=== PATIENT | female | born 1940 | race Caucasian/White ===

== ENCOUNTER 2020-06-11 07:17 | Day surgery (SDC) | payer OTHER ==
[2020-06-01 09:58] VITALS: BMI 31.9
[~2020-06-11 07:17] MED LIST: BUPIVACAINE HCL/PF 0.25% (2.5MG/ML) 10 ML VIAL IJ ONE; TRIAMCINOLONE ACET 40MG/1ML VIAL IM ONE
[2020-06-11] MEDS ORDERED: TRIAMCINOLONE ACET 40MG/1ML VIAL ONE (07:46)
[2020-06-11] MEDS ORDERED: BUPIVACAINE HCL/PF 0.25% (2.5MG/ML) 10 ML VIAL ONE (07:46)
[2020-06-11 08:14] LABS: ACTIVATED PTT 42.3 SECONDS (25.2-36.5)
[2020-06-11 08:18] LABS: INR 1.23 (0.82-1.09); PROTHROMBIN TIME (PATIENT) 13.6 SEC (10.2-13.0)
[2020-06-11] MEDS ORDERED: MIDAZOLAM HCL 2 MG/2 ML SINGLE DOSE VIAL ONE (08:39)
[2020-06-11] MEDS ORDERED: PROPOFOL 20 ML ONE (08:39)
[2020-06-11] MEDS ORDERED: DEXAMETHASONE SOD PHOSPHATE 4 MG/1 ML VIAL ONE (09:09)
[2020-06-11] MEDS ORDERED: ONDANSETRON 4 MG/2 ML VIAL ONE (09:09)
[2020-06-11] MEDS ORDERED: ceFAZolin SODIUM 1 GM VIAL ONE (09:09)
[2020-06-11] MEDS ORDERED: KETOROLAC TROMETHAMINE 30 MG/1 ML VIAL ONE (09:09)
[2020-06-11] MEDS ORDERED: METOPROLOL TARTRATE 5 MG/5 ML VIAL ONE (09:09)
[2020-06-11 11:00] VITALS: PULSE 84; TEMP 97.9
[2020-06-11 11:42] VITALS: BP 138/65
[2020-06-11] MEDS ORDERED: oxyCODONE HCL 5 MG TABLET PO PRN (11:50)
[2020-06-11] MEDS ORDERED: ONDANSETRON 4 MG/2 ML VIAL IVPUSH PRN (11:50)
[2020-06-11] MEDS ORDERED: LACTATED RINGERS SOLUTION 1,000 ML IV SCH (12:00)
== END 2020-06-11 11:45 | disposition home or self-care (01) ==
LOC: FASU 07:17
PROVIDERS: ATTEND Orthopaedic Surgery Adult Reconstructive Orthopaedic Surgery
PROC: 3E0U3BZ Introduction of Anesthetic Agent into Joints, Percutaneous Approach (ICD-10-PCS; 2020-06-11)
PROC: 3E0U3GC Introduction of Other Therapeutic Substance into Joints, Percutaneous Approach (ICD-10-PCS; 2020-06-11)
PROC: 0SCC4ZZ Extirpation of Matter from Right Knee Joint, Percutaneous Endoscopic Approach (ICD-10-PCS; principal; 2020-06-11 09:00)
DX: M17.11 Unilateral primary osteoarthritis, right knee (principal); M65.9 Synovitis and tenosynovitis, unspecified; M23.41 Loose body in knee, right knee
CPT/HCPCS: 36415; 85610; 85730; 94760

== ENCOUNTER 2021-01-26 05:48 | Inpatient (IN) | payer BC ==
[2021-01-20 12:10] VITALS: BMI 32.4
[2021-01-26] MEDS ORDERED: LOCK ITEM NR ONE ×2 (06:30→22:07)
[2021-01-26] MEDS ORDERED: MIDAZOLAM HCL 2 MG/2 ML SINGLE DOSE VIAL ONE (06:51)
[2021-01-26] MEDS ORDERED: BUPIVACAINE HCL/PF 0.5% (5MG/ML) 10 ML VIAL ONE ×2 (06:52→07:49)
[2021-01-26] MEDS ORDERED: BUPIVACAINE LIPOSOME/PF (EXPAREL) 266 MG/20 ML VIAL ONE (06:52)
[2021-01-26] MEDS ORDERED: SODIUM CHLORIDE 0.9% P/F 10 ML VIAL IJ ONE (06:52)
[2021-01-26] MEDS ORDERED: BENZOIN 118 ML SPRAY.PUMP TP ONE (07:14)
[2021-01-26] MEDS ORDERED: VANCOMYCIN 1,000 MG VIAL (RESTRICTED TO ID ONLY) IVPB ONE (08:25)
[2021-01-26] MEDS ORDERED: DEXAMETHASONE SOD PHOSPHATE 4 MG/1 ML VIAL ONE (08:27)
[2021-01-26] MEDS ORDERED: LIDOCAINE HCL/PF 2% SDV 5ML VIAL ONE (08:27)
[2021-01-26] MEDS ORDERED: PROPOFOL 20 ML ONE ×3 (08:27)
[2021-01-26] MEDS ORDERED: ceFAZolin SODIUM 1 GM VIAL ONE ×4 (08:27→21:34)
[2021-01-26] MEDS ORDERED: ONDANSETRON 4 MG/2 ML VIAL ONE (08:27)
[2021-01-26] MEDS ORDERED: ceFAZolin SODIUM 1 GM VIAL IVPB ONE (08:48)
[2021-01-26] MEDS ORDERED: TRANEXAMIC ACID 1000 MG/10 ML VIAL ONE ×2 (08:51→10:48)
[2021-01-26] MEDS ORDERED: VANCOMYCIN 1,000 MG VIAL (RESTRICTED TO ID ONLY) ONE (08:51)
[2021-01-26] MEDS ORDERED: ONDANSETRON 4 MG/2 ML VIAL IVPUSH PRN (11:50)
[2021-01-26] MEDS ORDERED: MAG HYDROX/AL HYDROX/SIMETH 30 ML UNIT-DOSE CUP PO PRN (11:50)
[2021-01-26] MEDS ORDERED: MAGNESIUM HYDROX 2400MG/30ML ORAL SUSPENSION 30 ML CUP PO PRN (11:50)
[2021-01-26] MEDS ORDERED: PROMETHAZINE HCL 25 MG/1 ML VIAL IVPUSH PRN (11:57)
[2021-01-26] MEDS ORDERED: oxyCODONE HCL 5 MG TABLET PO PRN (11:57)
[2021-01-26] MEDS ORDERED: LACTATED RINGERS SOLUTION 1,000 ML IV SCH (12:00)
[2021-01-26] MEDS ORDERED: ACETAMINOPHEN 1000 MG/100 ML VIAL IVPB ONE (12:02)
[2021-01-26] MEDS ORDERED: DEXTROSE 5%-WATER - 50 ML IVPB ONE ×2 (16:29→21:34)
[2021-01-26] MEDS: ACETAMINOPHEN 500 MG TABLET (FP) PO SCH ×2 (17:33→23:08)
[2021-01-26] MEDS: CEFAZOLIN 2 GM in DEXTROSE 5%-WATER - 50 ML IVPB SCH ×2 (17:46→22:15)
[2021-01-26 18:52] LABS: INR 1.14 (0.82-1.09); PROTHROMBIN TIME (PATIENT) 12.6 SEC (10.2-13.0)
[2021-01-26] MEDS: WARFARIN NA 5 MG TABLET PO SCH (19:28)
[2021-01-26] MEDS: SENNOSIDES/DOCUSATE COMBO (SENNA PLUS) TABLET (UD) PO SCH (21:38)
[2021-01-26] MEDS: ENOXAPARIN NA (PORCINE) 100 MG/1 ML DISP.SYRIN SQ SCH (21:38)
[2021-01-26] MEDS ORDERED: ENOXAPARIN NA (PORCINE) 30 MG/0.3 ML DISP.SYRIN SQ SCH (22:00)
[2021-01-26] MEDS: oxyCODONE HCL 5 MG TABLET PO PRN (22:51)
[2021-01-27] MEDS ORDERED: ceFAZolin SODIUM 1 GM VIAL ONE (05:45)
[2021-01-27] MEDS ORDERED: DEXTROSE 5%-WATER - 50 ML IVPB ONE (05:45)
[2021-01-27] MEDS: ACETAMINOPHEN 500 MG TABLET (FP) PO SCH ×3 (06:05→17:53)
[2021-01-27] MEDS: CEFAZOLIN 2 GM in DEXTROSE 5%-WATER - 50 ML IVPB SCH (06:05)
[2021-01-27] MEDS: oxyCODONE HCL 5 MG TABLET PO PRN ×3 (06:06→17:54)
[2021-01-27 08:02] LABS: HEMATOCRIT 37.1 % (32.4-45.2); HEMOGLOBIN 12.4 GM/dl (10.7-15.3); MCH 28.9 pg (25.7-33.7); MCHC 33.3 g/dl (32.0-36.0); MEAN CELL VOLUME 86.8 fl (80-96); MEAN PLT VOLUME 8.5 fl (7.5-11.1); PLATELET COUNT 309 10^3/uL (134-434); RBC 4.27 M/mm3 (3.60-5.2); RDW 12.8 % (11.6-15.6)
[2021-01-27 08:09] LABS: CALCIUM 8.9 mg/dl (8.5-10); CREATININE 1.2 mg/dl (0.55-1.3)
[2021-01-27 08:11] LABS: INR 1.22 (0.82-1.09); PROTHROMBIN TIME (PATIENT) 13.5 SEC (10.2-13.0)
[2021-01-27] MEDS ORDERED: PATIENT'S OWN MEDICATION (NON-FORMULARY) (Pravastatin Sodium [Pravachol] 40 MG Tablet) PO SCH (10:00)
[2021-01-27] MEDS ORDERED: PATIENT'S OWN MEDICATION (NON-FORMULARY) (Cetirizine Hcl [Zyrtec] 10 MG Tablet) PO SCH (10:00)
[2021-01-27] MEDS ORDERED: WARFARIN NA 5 MG TABLET PO SCH (10:00)
[2021-01-27] MEDS ORDERED: PATIENT'S OWN MEDICATION (NON-FORMULARY) (Amlodipine Besylate/Benazepril [Amlodipine-Benaz PO SCH (10:00)
[2021-01-27] MEDS: ENOXAPARIN NA (PORCINE) 100 MG/1 ML DISP.SYRIN SQ SCH ×2 (10:34→22:08)
[2021-01-27] MEDS: metoPROLOL SUCCINATE 25 MG TAB.SR.24H (FP) PO SCH (10:34)
[2021-01-27] MEDS: LISINOPRIL 20 MG TABLET PO SCH (10:34)
[2021-01-27] MEDS: PANTOPRAZOLE 40 MG TABLET PO SCH (10:34)
[2021-01-27] MEDS: SENNOSIDES/DOCUSATE COMBO (SENNA PLUS) TABLET (UD) PO SCH ×2 (10:34→22:08)
[2021-01-27] MEDS: amLODIPine BESYLATE 5 MG TABLET (FP) PO SCH (10:34)
[2021-01-27] MEDS: LORATADINE 10 MG TABLET PO SCH (10:34)
[2021-01-27] MEDS: WARFARIN NA 5 MG TABLET PO SCH (17:53)
[2021-01-27] MEDS: ATORVASTATIN CA 10 MG TABLET (FP) PO SCH (22:08)
[2021-01-28] MEDS: ACETAMINOPHEN 500 MG TABLET (FP) PO SCH ×4 (00:59→20:30)
[2021-01-28] MEDS: oxyCODONE HCL 5 MG TABLET PO PRN ×3 (01:00→20:29)
[2021-01-28 07:43] LABS: HEMATOCRIT 34.1 % (32.4-45.2); HEMOGLOBIN 11.2 GM/dl (10.7-15.3); MCH 28.5 pg (25.7-33.7); MCHC 32.7 g/dl (32.0-36.0); MEAN PLT VOLUME 8.6 fl (7.5-11.1); PLATELET COUNT 261 10^3/uL (134-434); RBC 3.92 M/mm3 (3.60-5.2); RDW 13.3 % (11.6-15.6); WHITE BLOOD COUNT 10.8 K/mm3 (4.0-10.8)
[2021-01-28 07:49] LABS: INR 1.59 (0.82-1.09); PROTHROMBIN TIME (PATIENT) 17.6 SEC (10.2-13.0)
[2021-01-28] MEDS: amLODIPine BESYLATE 5 MG TABLET (FP) PO SCH (11:13)
[2021-01-28] MEDS: ENOXAPARIN NA (PORCINE) 100 MG/1 ML DISP.SYRIN SQ SCH ×2 (11:13→21:46)
[2021-01-28] MEDS: LORATADINE 10 MG TABLET PO SCH (11:13)
[2021-01-28] MEDS: metoPROLOL SUCCINATE 25 MG TAB.SR.24H (FP) PO SCH (11:13)
[2021-01-28] MEDS: PANTOPRAZOLE 40 MG TABLET PO SCH (11:14)
[2021-01-28] MEDS: LISINOPRIL 20 MG TABLET PO SCH (11:14)
[2021-01-28] MEDS: SENNOSIDES/DOCUSATE COMBO (SENNA PLUS) TABLET (UD) PO SCH ×2 (11:14→21:45)
[2021-01-28] MEDS ORDERED: KETOROLAC TROMETHAMINE 15 MG/ML VIAL IVPUSH ONE ×2 (13:34→18:05)
[2021-01-28] MEDS: WARFARIN NA 5 MG TABLET PO SCH (17:09)
[2021-01-28 19:22] LABS: HEMATOCRIT 31.2 % (32.4-45.2); HEMOGLOBIN 10.5 GM/dl (10.7-15.3); MCH 29.3 pg (25.7-33.7); MCHC 33.8 g/dl (32.0-36.0); MEAN CELL VOLUME 86.6 fl (80-96); MEAN PLT VOLUME 9.1 fl (7.5-11.1); PLATELET COUNT 226 10^3/uL (134-434); RDW 13.5 % (11.6-15.6); WHITE BLOOD COUNT 10.5 K/mm3 (4.0-10.8)
[2021-01-28] MEDS: ATORVASTATIN CA 10 MG TABLET (FP) PO SCH (21:45)
[2021-01-29] MEDS: oxyCODONE HCL 5 MG TABLET PO PRN ×2 (00:30→06:44)
[2021-01-29] MEDS: ACETAMINOPHEN 500 MG TABLET (FP) PO SCH ×3 (06:00→18:29)
[2021-01-29] MEDS ORDERED: ONDANSETRON 4 MG/2 ML VIAL IVPUSH PRN ×3 (08:15→16:39)
[2021-01-29] MEDS ORDERED: oxyCODONE HCL 5 MG TABLET PO PRN ×6 (08:15→16:39)
[2021-01-29 08:18] LABS: BASO % 0.8 % (0-2.0); EOS % 3.4 % (0-4.5); HEMATOCRIT 29.2 % (32.4-45.2); HEMOGLOBIN 9.8 GM/dl (10.7-15.3); LYMPH % 12.1 % (8-40); MCH 29.3 pg (25.7-33.7); MCHC 33.3 g/dl (32.0-36.0); MEAN PLT VOLUME 9.1 fl (7.5-11.1); MONO % 9.6 % (3.8-10.2); NEUT % 74.1 % (42.8-82.8); PLATELET COUNT 225 10^3/uL (134-434); RBC 3.32 M/mm3 (3.60-5.2); RDW 13.1 % (11.6-15.6); WHITE BLOOD COUNT 8.5 K/mm3 (4.0-10.8)
[2021-01-29 08:24] LABS: INR 1.41 (0.82-1.09); PROTHROMBIN TIME (PATIENT) 15.7 SEC (10.2-13.0)
[2021-01-29 08:27] LABS: ALBUMIN 2.9 g/dl (3.4-5.0); BILIRUBIN,TOTAL 1.3 mg/dl (0.2-1); CALCIUM 8.9 mg/dl (8.5-10); CREATININE 1.2 mg/dl (0.55-1.3); TOT PROT 5.4 g/dl (6.4-8.2)
[2021-01-29] MEDS ORDERED: LISINOPRIL 20 MG TABLET PO SCH (10:00)
[2021-01-29] MEDS ORDERED: PANTOPRAZOLE 40 MG TABLET PO SCH (10:00)
[2021-01-29] MEDS ORDERED: SENNOSIDES/DOCUSATE COMBO (SENNA PLUS) TABLET (UD) PO SCH ×2 (10:00→22:00)
[2021-01-29] MEDS ORDERED: LORATADINE 10 MG TABLET PO SCH (10:00)
[2021-01-29] MEDS ORDERED: metoPROLOL SUCCINATE 25 MG TAB.SR.24H (FP) PO SCH (10:00)
[2021-01-29] MEDS ORDERED: amLODIPine BESYLATE 5 MG TABLET (FP) PO SCH (10:00)
[2021-01-29] MEDS ORDERED: ONDANSETRON 4 MG/2 ML VIAL ONE (11:41)
[2021-01-29] MEDS ORDERED: DEXAMETHASONE SOD PHOSPHATE 4 MG/1 ML VIAL ONE (11:41)
[2021-01-29] MEDS ORDERED: LIDOCAINE HCL/PF 2% SDV 5ML VIAL ONE (11:41)
[2021-01-29] MEDS ORDERED: fentaNYL CITRATE 250 MCG/5 ML VIAL ONE (11:42)
[2021-01-29] MEDS ORDERED: PROPOFOL 20 ML ONE ×2 (11:43)
[2021-01-29] MEDS ORDERED: TRANEXAMIC ACID 1000 MG/10 ML VIAL ONE (11:46)
[2021-01-29] MEDS ORDERED: ceFAZolin SODIUM 1 GM VIAL ONE (11:46)
[2021-01-29] MEDS ORDERED: METOPROLOL TARTRATE 5 MG/5 ML VIAL ONE (11:48)
[2021-01-29] MEDS ORDERED: MIDAZOLAM HCL 2 MG/2 ML SINGLE DOSE VIAL ONE (11:49)
[2021-01-29] MEDS ORDERED: ACETAMINOPHEN 500 MG TABLET (FP) PO SCH ×2 (12:00→18:00)
[2021-01-29] MEDS ORDERED: ceFAZolin SODIUM 1 GM VIAL IVPB ONE (12:05)
[2021-01-29] MEDS ORDERED: VANCOMYCIN 1,000 MG VIAL (RESTRICTED TO ID ONLY) ONE (12:48)
[2021-01-29] MEDS ORDERED: VANCOMYCIN 1,000 MG VIAL (RESTRICTED TO ID ONLY) IVPB ONE (12:50)
[2021-01-29] MEDS ORDERED: KETOROLAC TROMETHAMINE 15 MG/ML VIAL IVPUSH ONE (14:22)
[2021-01-29] MEDS: CEFAZOLIN 2 GM in DEXTROSE 5%-WATER - 100 ML IVPB SCH (18:37)
[2021-01-29] MEDS: ATORVASTATIN CA 10 MG TABLET (FP) PO SCH (21:49)
[2021-01-29] MEDS: SENNOSIDES/DOCUSATE COMBO (SENNA PLUS) TABLET (UD) PO SCH (21:50)
[2021-01-29] MEDS ORDERED: ATORVASTATIN CA 10 MG TABLET (FP) PO SCH ×2 (22:00)
[2021-01-30] MEDS: CEFAZOLIN 2 GM in DEXTROSE 5%-WATER - 100 ML IVPB SCH ×2 (00:30→06:12)
[2021-01-30] MEDS: ACETAMINOPHEN 500 MG TABLET (FP) PO SCH ×4 (00:30→17:15)
[2021-01-30 08:03] LABS: BASO % 0.1 % (0-2.0); EOS % 0.1 % (0-4.5); HEMATOCRIT 25.7 % (32.4-45.2); HEMOGLOBIN 8.9 GM/dL (10.7-15.3); MCH 29.5 pg (25.7-33.7); MCHC 34.4 g/dl (32.0-36.0); MEAN CELL VOLUME 85.7 fl (80-96); MONO % 7.7 % (3.8-10.2); NEUT % 86.1 % (42.8-82.8); PLATELET COUNT 272 10^3/uL (134-434); RDW 14.2 % (11.6-15.6); WHITE BLOOD COUNT 7.2 K/mm3 (4.0-10.0)
[2021-01-30 08:21] LABS: BLOOD UREA NITROGEN 18.6 mg/dL (7-18); CALCIUM 8.4 mg/dL (8.5-10.1)
[2021-01-30 08:24] LABS: CREATININE 1.1 mg/dL (0.55-1.3)
[2021-01-30] MEDS ORDERED: PT OWN MED DRAWER 7, Y5N ONE (09:21)
[2021-01-30] MEDS: SENNOSIDES/DOCUSATE COMBO (SENNA PLUS) TABLET (UD) PO SCH ×2 (09:54→21:46)
[2021-01-30] MEDS: LISINOPRIL 20 MG TABLET PO SCH (09:54)
[2021-01-30] MEDS: metoPROLOL SUCCINATE 25 MG TAB.SR.24H (FP) PO SCH (09:54)
[2021-01-30] MEDS: amLODIPine BESYLATE 5 MG TABLET (FP) PO SCH (09:59)
[2021-01-30] MEDS: CELECOXIB 200 MG CAPSULE PO SCH (09:59)
[2021-01-30] MEDS: LORATADINE 10 MG TABLET PO SCH (09:59)
[2021-01-30] MEDS: ENOXAPARIN NA (PORCINE) 30 MG/0.3 ML DISP.SYRIN SQ SCH ×2 (09:59→21:46)
[2021-01-30] MEDS: PANTOPRAZOLE 40 MG TABLET PO SCH (09:59)
[2021-01-30] MEDS ORDERED: LORATADINE 10 MG TABLET PO SCH (10:00)
[2021-01-30] MEDS ORDERED: PANTOPRAZOLE 40 MG TABLET PO SCH (10:00)
[2021-01-30] MEDS ORDERED: metoPROLOL SUCCINATE 25 MG TAB.SR.24H (FP) PO SCH (10:00)
[2021-01-30] MEDS ORDERED: LISINOPRIL 20 MG TABLET PO SCH (10:00)
[2021-01-30] MEDS ORDERED: amLODIPine BESYLATE 5 MG TABLET (FP) PO SCH (10:00)
[2021-01-30] MEDS: WARFARIN NA 5 MG TABLET PO SCH (17:17)
[2021-01-30] MEDS: ATORVASTATIN CA 10 MG TABLET (FP) PO SCH (21:46)
[2021-01-31] MEDS: ACETAMINOPHEN 500 MG TABLET (FP) PO SCH ×4 (00:05→17:35)
[2021-01-31 08:29] LABS: INR 1.24 (0.83-1.09); PROTHROMBIN TIME (PATIENT) 13.9 SEC (9.7-13.0)
[2021-01-31 08:36] LABS: BASO % 0.4 % (0-2.0); EOS % 4.2 % (0-4.5); HEMATOCRIT 25.4 % (32.4-45.2); HEMOGLOBIN 8.7 GM/dL (10.7-15.3); LYMPH % 23.7 % (8-40); MCH 29.6 pg (25.7-33.7); MCHC 34.3 g/dl (32.0-36.0); MEAN CELL VOLUME 86.3 fl (80-96); MEAN PLT VOLUME 8.3 fl (7.5-11.1); MONO % 11.3 % (3.8-10.2); NEUT % 60.4 % (42.8-82.8); PLATELET COUNT 333 10^3/uL (134-434); RBC 2.94 M/mm3 (3.60-5.2); RDW 14.2 % (11.6-15.6); WHITE BLOOD COUNT 6.9 K/mm3 (4.0-10.0)
[2021-01-31 08:59] LABS: BLOOD UREA NITROGEN 24.4 mg/dL (7-18); CALCIUM 9.2 mg/dL (8.5-10.1)
[2021-01-31] MEDS ORDERED: PT OWN MED DRAWER 7, Y5N ONE (09:30)
[2021-01-31] MEDS: metoPROLOL SUCCINATE 25 MG TAB.SR.24H (FP) PO SCH (10:11)
[2021-01-31] MEDS: PANTOPRAZOLE 40 MG TABLET PO SCH (10:13)
[2021-01-31] MEDS: SENNOSIDES/DOCUSATE COMBO (SENNA PLUS) TABLET (UD) PO SCH ×2 (10:14→21:31)
[2021-01-31] MEDS: LORATADINE 10 MG TABLET PO SCH (10:14)
[2021-01-31] MEDS: LISINOPRIL 20 MG TABLET PO SCH (10:15)
[2021-01-31] MEDS: amLODIPine BESYLATE 5 MG TABLET (FP) PO SCH (10:15)
[2021-01-31] MEDS: ENOXAPARIN NA (PORCINE) 30 MG/0.3 ML DISP.SYRIN SQ SCH ×2 (10:15→21:31)
[2021-01-31] MEDS: CELECOXIB 200 MG CAPSULE PO SCH (10:16)
[2021-01-31] MEDS: WARFARIN NA 5 MG TABLET PO SCH (17:35)
[2021-01-31] MEDS: ATORVASTATIN CA 10 MG TABLET (FP) PO SCH (21:31)
[2021-02-01] MEDS: ACETAMINOPHEN 500 MG TABLET (FP) PO SCH ×4 (00:36→18:27)
[2021-02-01 09:32] LABS: HEMATOCRIT 25.4 % (32.4-45.2); HEMOGLOBIN 8.7 GM/dL (10.7-15.3); MCH 29.3 pg (25.7-33.7); MCHC 34.1 g/dl (32.0-36.0); MEAN PLT VOLUME 7.8 fl (7.5-11.1); PLATELET COUNT 336 10^3/uL (134-434); RBC 2.95 M/mm3 (3.60-5.2); RDW 14.2 % (11.6-15.6); WHITE BLOOD COUNT 6.5 K/mm3 (4.0-10.0)
[2021-02-01 09:38] LABS: INR 1.34 (0.83-1.09); PROTHROMBIN TIME (PATIENT) 15.7 SEC (9.7-13.0)
[2021-02-01] MEDS ORDERED: PT OWN MED DRAWER 7, Y5N ONE (09:53)
[2021-02-01] MEDS: metoPROLOL SUCCINATE 25 MG TAB.SR.24H (FP) PO SCH (10:59)
[2021-02-01] MEDS: amLODIPine BESYLATE 5 MG TABLET (FP) PO SCH (10:59)
[2021-02-01] MEDS: CELECOXIB 200 MG CAPSULE PO SCH (11:00)
[2021-02-01] MEDS: ENOXAPARIN NA (PORCINE) 30 MG/0.3 ML DISP.SYRIN SQ SCH ×2 (11:00→21:41)
[2021-02-01] MEDS: LORATADINE 10 MG TABLET PO SCH (11:00)
[2021-02-01] MEDS: SENNOSIDES/DOCUSATE COMBO (SENNA PLUS) TABLET (UD) PO SCH ×3 (11:00→21:41)
[2021-02-01] MEDS: LISINOPRIL 20 MG TABLET PO SCH (11:00)
[2021-02-01] MEDS: PANTOPRAZOLE 40 MG TABLET PO SCH (11:00)
[2021-02-01] MEDS ORDERED: WARFARIN NA 5 MG TABLET PO ONE (18:00)
[2021-02-01] MEDS: ATORVASTATIN CA 10 MG TABLET (FP) PO SCH (21:41)
[2021-02-02] MEDS: ACETAMINOPHEN 500 MG TABLET (FP) PO SCH ×3 (01:46→17:12)
[2021-02-02 07:22] LABS: INR 1.67 (0.83-1.09); PROTHROMBIN TIME (PATIENT) 19.6 SEC (9.7-13.0)
[2021-02-02 07:23] LABS: BASO % 0.5 % (0-2.0); EOS % 4.8 % (0-4.5); HEMATOCRIT 25.6 % (32.4-45.2); HEMOGLOBIN 8.6 GM/dL (10.7-15.3); LYMPH % 18.7 % (8-40); MCH 28.8 pg (25.7-33.7); MCHC 33.4 g/dl (32.0-36.0); MEAN CELL VOLUME 86.1 fl (80-96); MEAN PLT VOLUME 7.7 fl (7.5-11.1); PLATELET COUNT 367 10^3/uL (134-434); RBC 2.97 M/mm3 (3.60-5.2); RDW 14.4 % (11.6-15.6); WHITE BLOOD COUNT 7.1 K/mm3 (4.0-10.0)
[2021-02-02 07:38] LABS: CALCIUM 8.7 mg/dL (8.5-10.1)
[2021-02-02 07:39] LABS: ALBUMIN 2.3 g/dl (3.4-5.0); BLOOD UREA NITROGEN 20.1 mg/dL (7-18); MAGNESIUM 2.2 mg/dL (1.8-2.4)
[2021-02-02 07:42] LABS: PHOSPHOROUS 3.1 mg/dL (2.5-4.9)
[2021-02-02 07:43] LABS: BILIRUBIN,TOTAL 0.9 mg/dL (0.2-1); TOT PROT 5.2 g/dl (6.4-8.2)
[2021-02-02] MEDS ORDERED: PT OWN MED DRAWER 7, Y5N ONE (09:02)
[2021-02-02] MEDS: metoPROLOL SUCCINATE 25 MG TAB.SR.24H (FP) PO SCH (09:46)
[2021-02-02] MEDS: CELECOXIB 200 MG CAPSULE PO SCH (09:46)
[2021-02-02] MEDS: PANTOPRAZOLE 40 MG TABLET PO SCH (09:47)
[2021-02-02] MEDS: LISINOPRIL 20 MG TABLET PO SCH (09:47)
[2021-02-02] MEDS: SENNOSIDES/DOCUSATE COMBO (SENNA PLUS) TABLET (UD) PO SCH (09:47)
[2021-02-02] MEDS: ENOXAPARIN NA (PORCINE) 30 MG/0.3 ML DISP.SYRIN SQ SCH ×2 (09:49→21:25)
[2021-02-02] MEDS: amLODIPine BESYLATE 5 MG TABLET (FP) PO SCH (09:49)
[2021-02-02] MEDS: LORATADINE 10 MG TABLET PO SCH (09:50)
[2021-02-02] MEDS ORDERED: DOCUSATE SODIUM 100 MG CAPSULE (FP) PO PRN (16:09)
[2021-02-02] MEDS: WARFARIN NA 5 MG TABLET PO SCH (17:13)
[2021-02-02] MEDS: ATORVASTATIN CA 10 MG TABLET (FP) PO SCH (21:24)
[2021-02-03 07:05] LABS: BASO % 0.6 % (0-2.0); EOS % 4.2 % (0-4.5); HEMATOCRIT 25.2 % (32.4-45.2); HEMOGLOBIN 8.8 GM/dL (10.7-15.3); LYMPH % 18.1 % (8-40); MCHC 34.7 g/dl (32.0-36.0); MEAN CELL VOLUME 86.5 fl (80-96); MEAN PLT VOLUME 7.5 fl (7.5-11.1); MONO % 9.9 % (3.8-10.2); NEUT % 67.2 % (42.8-82.8); PLATELET COUNT 400 10^3/uL (134-434); RBC 2.92 M/mm3 (3.60-5.2); RDW 14.3 % (11.6-15.6); WHITE BLOOD COUNT 7.3 K/mm3 (4.0-10.0)
[2021-02-03 07:10] LABS: INR 2.21 (0.83-1.09)
[2021-02-03 07:30] LABS: BLOOD UREA NITROGEN 17.3 mg/dL (7-18); CALCIUM 9.3 mg/dL (8.5-10.1)
[2021-02-03 07:31] LABS: ALBUMIN 2.4 g/dl (3.4-5.0); MAGNESIUM 1.7 mg/dL (1.8-2.4)
[2021-02-03 07:34] LABS: CREATININE 0.9 mg/dL (0.55-1.3); PHOSPHOROUS 3.4 mg/dL (2.5-4.9)
[2021-02-03 07:35] LABS: TOT PROT 5.4 g/dl (6.4-8.2)
[2021-02-03] MEDS ORDERED: MAGNESIUM OXIDE 400 MG TABLET (FP) PO ONE (09:00)
[2021-02-03] MEDS ORDERED: PT OWN MED DRAWER 7, Y5N ONE (09:25)
[2021-02-03] MEDS: amLODIPine BESYLATE 5 MG TABLET (FP) PO SCH (09:58)
[2021-02-03] MEDS: CELECOXIB 200 MG CAPSULE PO SCH (09:58)
[2021-02-03] MEDS: LORATADINE 10 MG TABLET PO SCH (09:59)
[2021-02-03] MEDS: PANTOPRAZOLE 40 MG TABLET PO SCH (09:59)
[2021-02-03] MEDS: LISINOPRIL 20 MG TABLET PO SCH (09:59)
[2021-02-03] MEDS: metoPROLOL SUCCINATE 25 MG TAB.SR.24H (FP) PO SCH (09:59)
[2021-02-03] MEDS: ACETAMINOPHEN 500 MG TABLET (FP) PO SCH ×2 (12:43→18:34)
[2021-02-03] MEDS: WARFARIN NA 5 MG TABLET PO SCH (18:35)
[2021-02-03] MEDS: ATORVASTATIN CA 10 MG TABLET (FP) PO SCH (21:14)
[2021-02-04] MEDS: ACETAMINOPHEN 500 MG TABLET (FP) PO SCH ×4 (00:52→18:02)
[2021-02-04] MEDS ORDERED: PT OWN MED DRAWER 7, Y5N ONE (09:23)
[2021-02-04] MEDS: LORATADINE 10 MG TABLET PO SCH (09:43)
[2021-02-04] MEDS: PANTOPRAZOLE 40 MG TABLET PO SCH (09:43)
[2021-02-04] MEDS: metoPROLOL SUCCINATE 25 MG TAB.SR.24H (FP) PO SCH (09:43)
[2021-02-04] MEDS: amLODIPine BESYLATE 5 MG TABLET (FP) PO SCH (09:43)
[2021-02-04] MEDS: LISINOPRIL 20 MG TABLET PO SCH (09:43)
[2021-02-04] MEDS: CELECOXIB 200 MG CAPSULE PO SCH (09:44)
[2021-02-04] MEDS: WARFARIN NA 5 MG TABLET PO SCH (18:03)
[2021-02-04] MEDS: ATORVASTATIN CA 10 MG TABLET (FP) PO SCH (21:17)
[2021-02-05] MEDS: ACETAMINOPHEN 500 MG TABLET (FP) PO SCH ×6 (00:10→23:57)
[2021-02-05 08:12] LABS: INR 2.2 (0.83-1.09); PROTHROMBIN TIME (PATIENT) 25.9 SEC (9.7-13.0)
[2021-02-05] MEDS ORDERED: PT OWN MED DRAWER 7, Y5N ONE (08:27)
[2021-02-05] MEDS: LORATADINE 10 MG TABLET PO SCH (09:01)
[2021-02-05] MEDS: LISINOPRIL 20 MG TABLET PO SCH (09:01)
[2021-02-05] MEDS: metoPROLOL SUCCINATE 25 MG TAB.SR.24H (FP) PO SCH (09:02)
[2021-02-05] MEDS: amLODIPine BESYLATE 5 MG TABLET (FP) PO SCH (09:02)
[2021-02-05] MEDS: PANTOPRAZOLE 40 MG TABLET PO SCH (09:02)
[2021-02-05] MEDS: CELECOXIB 200 MG CAPSULE PO SCH (09:03)
[2021-02-05] MEDS: WARFARIN NA 5 MG TABLET PO SCH (17:32)
[2021-02-05] MEDS: ATORVASTATIN CA 10 MG TABLET (FP) PO SCH (21:01)
[2021-02-06] MEDS: ACETAMINOPHEN 500 MG TABLET (FP) PO SCH ×4 (05:30→17:55)
[2021-02-06 08:21] LABS: INR 2.54 (0.83-1.09); PROTHROMBIN TIME (PATIENT) 28.7 SEC (9.7-13.0)
[2021-02-06] MEDS ORDERED: PT OWN MED DRAWER 7, Y5N ONE (09:59)
[2021-02-06] MEDS: CELECOXIB 200 MG CAPSULE PO SCH (10:08)
[2021-02-06] MEDS: amLODIPine BESYLATE 5 MG TABLET (FP) PO SCH (10:08)
[2021-02-06] MEDS: metoPROLOL SUCCINATE 25 MG TAB.SR.24H (FP) PO SCH (10:08)
[2021-02-06] MEDS: LORATADINE 10 MG TABLET PO SCH (10:08)
[2021-02-06] MEDS: PANTOPRAZOLE 40 MG TABLET PO SCH (10:08)
[2021-02-06] MEDS: LISINOPRIL 20 MG TABLET PO SCH (10:08)
[2021-02-06] MEDS: WARFARIN NA 5 MG TABLET PO SCH (17:54)
[2021-02-06] MEDS: ATORVASTATIN CA 10 MG TABLET (FP) PO SCH (21:15)
[2021-02-07] MEDS: ACETAMINOPHEN 500 MG TABLET (FP) PO SCH ×3 (05:28→15:23)
[2021-02-07] MEDS ORDERED: PT OWN MED DRAWER 7, Y5N ONE (09:00)
[2021-02-07] MEDS: amLODIPine BESYLATE 5 MG TABLET (FP) PO SCH (09:24)
[2021-02-07] MEDS: PANTOPRAZOLE 40 MG TABLET PO SCH (09:25)
[2021-02-07] MEDS: metoPROLOL SUCCINATE 25 MG TAB.SR.24H (FP) PO SCH (09:25)
[2021-02-07] MEDS: LISINOPRIL 20 MG TABLET PO SCH (09:25)
[2021-02-07] MEDS: LORATADINE 10 MG TABLET PO SCH (09:25)
[2021-02-07] MEDS: CELECOXIB 200 MG CAPSULE PO SCH (09:25)
[2021-02-07 11:43] VITALS: BP 134/76; PULSE 67; TEMP 98
== END 2021-02-07 18:29 | disposition home or self-care (01) | DRG 470 ==
LOC: FASUSAT 05:48 → FM/S 14:19 → FASUSAT 01-28 18:58 → J6S 01-29 08:05 → J4W 01-29 16:23
PROVIDERS: ADMIT Orthopaedic Surgery Orthopaedic Surgery of the Spine; ATTEND Internal Medicine
PROC: 0SRC0JZ Replacement of Right Knee Joint with Synthetic Substitute, Open Approach (ICD-10-PCS; principal; 2021-01-26 09:25)
PROC: 0Y9F00Z Drainage of Right Knee Region with Drainage Device, Open Approach (ICD-10-PCS; 2021-01-29)
PROC: 3E10X8Z Irrigation of Skin and Mucous Membranes using Irrigating Substance (ICD-10-PCS; 2021-01-29)
DX: M17.11 Unilateral primary osteoarthritis, right knee (principal); M96.840 Postprocedural hematoma of a musculoskeletal structure following a musculoskeletal system procedure; I10 Essential (primary) hypertension; E78.5 Hyperlipidemia, unspecified; I48.0 Paroxysmal atrial fibrillation; Z86.73 Personal history of transient ischemic attack (TIA), and cerebral infarction without residual deficits; Y83.8 Other surgical procedures as the cause of abnormal reaction of the patient, or of later complication, without mention of misadventure at the time of the procedure
CPT/HCPCS: 36415; 73560-TC-RT-FY; 80048; 80053; 83735; 84100; 85025; 85027; 85610; 85730; 86850; 86900; 86901; 88305-TC; 88311-TC; 94010; 94760; 97010-GP; 97116-GP; 97162-GP; J0131